=== PATIENT | male | born 1980 | race American Indian/Alaskan Native ===

== ENCOUNTER 2016-12-29 21:34 | Emergency (ER) | payer SELFPAY ==
[2016-12-29 21:51] VITALS: BMI 23.6
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
[2016-12-29 22:30] LABS: HEMOGLOBIN 14.3 gm/dL (14.0-18.0); MEAN CELL VOLUME 86.6 fL (80.0-105.0); MEAN CORPUSCULAR HEMOGLOBIN 30.4 pg (25.0-35.0); RBC 4.71 10^6/uL (3.5-6.1); RED CELL DISTRIBUTION WIDTH 12.8 % (11.5-14.5); WHITE BLOOD COUNT 4.9 10^3/ul (4.5-11.0)
[2016-12-29 22:40] LABS: BLOOD UREA NITROGEN 10 mg/dL (7-21); CALCIUM 9.3 mg/dL (8.4-10.5); GFR AFRICAN-AMERICAN > 60; GFR NON-AFRICAN AMERICAN > 60
[2016-12-29 23:11] VITALS: BP 133/77; PULSE 59; RESP 18; TEMP 98; O2SAT 99
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
== END 2016-12-30 03:25 | disposition short-term general hospital (02) ==
LOC: ED 21:34
DX: S02.641A Fracture of ramus of right mandible, initial encounter for closed fracture (principal); Y04.0XXA Assault by unarmed brawl or fight, initial encounter; Y92.410 Unspecified street and highway as the place of occurrence of the external cause
CPT/HCPCS: 70486; 80048; 85027; 86850; 86900; 96374; 99283; G0480; J1885

== ENCOUNTER 2018-01-30 10:28 | Emergency (ER) | payer BC ==
[2018-01-30 10:30] VITALS: BMI 23.6
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
[2018-01-30] MEDS ORDERED: Promethazine DM 6.25 mg-15 mg/5 ml Syrup PO STA (12:11)
[2018-01-30 12:34] VITALS: BP 121/69; PULSE 77; RESP 18; TEMP 98; O2SAT 98
== END 2018-01-30 12:33 | disposition home or self-care (01) ==
LOC: ED 10:28
DX: R05 Cough (principal)